=== PATIENT | male | born 1950 | race Caucasian/White ===

== ENCOUNTER 2020-10-03 13:11 | Inpatient (IN) ==
[2020-10-03] MEDS ORDERED: SODIUM CHLORIDE 0.9% 1,000 ML IV STA (20:00)
[2020-10-03 20:15] LABS: Hemoglobin 16.3 GM/DL (14.0-18.0); Immature Granulocytes % 0.4 %; Immature Granulocytes Absolute 0.03 #; Lymphocytes # 1.2 10*3/uL (1.4-4.0); Lymphocytes % 18.2 % (21.2-54.2); Mean Corpuscular Volume 89.2 FL (87-102); Mean Platelet Volume 10.4 FL (9.6-12.0); Monocytes % 5.6 % (1.7-12.7); Neutrophils % 75.8 % (38.7-73.9); Platelet Count 231 T/CUMM (130-400); Red Blood Count 5.38 MC/CUMM (3.8-5.5); Red Cell Distribution Width 12.1 % (9.3-17.3); White Blood Count 6.8 T/CUMM (4-12)
[2020-10-03 20:29] LABS: Albumin 3.1 G/DL (3.4-5.0); Bilirubin,Total 0.7 MG/DL (0.20-1.00); Calcium 8.8 MG/DL (8.5-10.1); Osmolality,Calculated 273.7 MOS/KG (273-304); Potassium 3.6 MMOL/L (3.5-5.1)
[2020-10-03] MEDS ORDERED: GLUCAGON 1 MG VIAL IM PRN (21:27)
[2020-10-03] MEDS ORDERED: ACETAMINOPHEN 325 MG TABLET PO PRN (21:27)
[2020-10-03] MEDS ORDERED: ONDANSETRON 4 MG/2 ML VIAL IV PRN (21:27)
[2020-10-03] MEDS ORDERED: DEXTROSE 50% 25 GM/50 ML VIAL IV PRN (21:27)
[2020-10-03] MEDS: cefTRIAXone 2,000 MG in SODIUM CHLORIDE 0.9% 100 ML IV SCH (22:45)
[2020-10-03] MEDS: LACTATED RINGERS 1,000 ML IV SCH (23:59)
[2020-10-04 04:11] LABS: Basophils % 0.1 % (0.0-0.8); Hematocrit 39.7 VOL% (42.0-52.0); Hemoglobin 13.6 GM/DL (14.0-18.0); Immature Granulocytes % 0.6 %; Immature Granulocytes Absolute 0.04 #; Lymphocytes # 1.2 10*3/uL (1.4-4.0); Lymphocytes % 16.3 % (21.2-54.2); Mean Corpuscular HGB Conc 34.3 GM/DL (32-36); Mean Corpuscular Volume 89.4 FL (87-102); Mean Platelet Volume 10.2 FL (9.6-12.0); Monocytes % 6.4 % (1.7-12.7); Neutrophils % 76.6 % (38.7-73.9); Platelet Count 208 T/CUMM (130-400); Red Blood Count 4.44 MC/CUMM (3.8-5.5); Red Cell Distribution Width 12.1 % (9.3-17.3); White Blood Count 7.2 T/CUMM (4-12)
[2020-10-04 04:53] LABS: Calcium 7.7 MG/DL (8.5-10.1); Osmolality,Calculated 280.8 MOS/KG (273-304); Potassium 3.8 MMOL/L (3.5-5.1)
[2020-10-04 05:33] LABS: Ferritin 1087.8 ng/ml (26-388)
[2020-10-04] MEDS ORDERED: MELATONIN 3 MG TABLET PO PRN ×2 (07:21→08:19)
[2020-10-04] MEDS ORDERED: REMDESIVIR 200 MG in SODIUM CHLORIDE 0.9% 210 ML IV ONE (09:00)
[2020-10-04] MEDS ORDERED: CHOLECALCIFEROL 1,000 UNIT TABLET PO SCH (09:00)
[2020-10-04] MEDS ORDERED: ASCORBIC ACID 500 MG TABLET PO SCH (09:00)
[2020-10-04] MEDS: FAMOTIDINE 20 MG TABLET PO SCH ×2 (09:25→21:04)
[2020-10-04] MEDS: AZITHROMYCIN 250 MG TABLET PO SCH (09:25)
[2020-10-04] MEDS: ASCORBIC ACID 500 MG TABLET PO SCH ×3 (09:25→21:04)
[2020-10-04] MEDS: ZINC SULFATE 220 MG CAPSULE PO SCH (09:25)
[2020-10-04] MEDS: CHOLECALCIFEROL 5,000 UNIT TABLET PO SCH (09:25)
[2020-10-04] MEDS: CETIRIZINE 10 MG TABLET PO SCH (09:25)
[2020-10-04] MEDS: ENOXAPARIN 40 MG/0.4 ML SYRINGE SUBCUT SCH (09:25)
[2020-10-04] MEDS: DEXAMETHASONE 4 MG TABLET PO SCH (09:25)
[2020-10-04] MEDS: LACTATED RINGERS 1,000 ML IV SCH (22:56)
[2020-10-04] MEDS: cefTRIAXone 2,000 MG in SODIUM CHLORIDE 0.9% 100 ML IV SCH (23:04)
[2020-10-05] MEDS: ASCORBIC ACID 500 MG TABLET PO SCH ×2 (01:45→08:42)
[2020-10-05 06:37] LABS: Hematocrit 40.4 VOL% (42.0-52.0); Hemoglobin 13.9 GM/DL (14.0-18.0); Immature Granulocytes % 1.2 %; Immature Granulocytes Absolute 0.08 #; Lymphocytes # 1.1 10*3/uL (1.4-4.0); Lymphocytes % 16.7 % (21.2-54.2); Mean Corpuscular HGB Conc 34.4 GM/DL (32-36); Mean Platelet Volume 10.5 FL (9.6-12.0); Monocytes % 7.6 % (1.7-12.7); Neutrophils % 74.5 % (38.7-73.9); Platelet Count 255 T/CUMM (130-400); Red Blood Count 4.49 MC/CUMM (3.8-5.5); White Blood Count 6.7 T/CUMM (4-12)
[2020-10-05 07:06] LABS: Burr Cells Slight; Hypochromasia 1+; Lymphocytes 12 % (20-55); Microcytosis 1+; Ovalocytes Slight; Platelet Estimate Adequate; Segmented Neutrophils 77 % (50-85); Total Cells Counted 100
[2020-10-05 07:19] LABS: Ferritin 1116.8 ng/ml (26-388)
[2020-10-05] MEDS: ZINC SULFATE 220 MG CAPSULE PO SCH (08:41)
[2020-10-05] MEDS: AZITHROMYCIN 250 MG TABLET PO SCH (08:42)
[2020-10-05] MEDS: FAMOTIDINE 20 MG TABLET PO SCH (08:42)
[2020-10-05] MEDS: DEXAMETHASONE 4 MG TABLET PO SCH (08:42)
[2020-10-05] MEDS: CETIRIZINE 10 MG TABLET PO SCH (08:42)
[2020-10-05] MEDS: ENOXAPARIN 40 MG/0.4 ML SYRINGE SUBCUT SCH (08:42)
[2020-10-05] MEDS ORDERED: REMDESIVIR 100 MG in SODIUM CHLORIDE 0.9% 100 ML IV SCH (09:00)
[2020-10-05] MEDS: CHOLECALCIFEROL 5,000 UNIT TABLET PO SCH (10:09)
[2020-10-05 13:32] VITALS: BP 131/81
[2020-10-05] MEDS: LACTATED RINGERS 1,000 ML IV SCH (14:35)
== END 2020-10-05 15:30 | disposition home health service (06) | DRG 177 ==
LOC: N.ED 13:11 → N.EDINP 21:27 → SUATTDRO 21:27 → N.2E 10-04 19:47
PROVIDERS: ADMIT Hospitalist; ATTEND Internal Medicine